=== PATIENT | female | born 1955 | race Caucasian/White ===

== ENCOUNTER 2022-02-28 08:04 | Day surgery (SDC) | payer OTHER ==
[2022-02-28 08:40] LABS: Absolute Lymphocytes (CBC) 2.3 K/uL (0.7-4.9); Hematocrit 40.9 % (36.0-45.0); Lymphocytes % 33.3 % (15.3-44.8); MCV 91.4 fL (80-100); MPV 6.8 fL (7.6-11.3); RBC Red Blood Cell Count 4.47 M/uL (3.86-4.86)
[2022-02-28 08:48] LABS: Specific Gravity 1.025 (1.005-1.030); Urine Bilirubin Negative (Negative); Urine Blood Negative (Negative); Urine Clarity Clear (Clear); Urine Color Yellow (Yellow); Urine Glucose Negative (Negative); Urine Protein Negative (Negative); Urine Urobilinogen 0.2 mg/dL (0.2-1.0); Urine pH 5.5 (5.0-7.0)
[2022-02-28] MEDS ORDERED: CEFAZOLIN SODIUM 1 GM/VIAL ONE (08:52)
[2022-02-28] MEDS ORDERED: ACETAMINOPHEN 500 MG TAB ONE (08:59)
[2022-02-28] MEDS: Ringers Lactate 1,000 ML IV ONE ×2 (09:00→09:15)
[2022-02-28 09:01] LABS: Urine Bacteria <20 /HPF (<20); Urine RBC None Seen /HPF (None Seen)
[2022-02-28] MEDS ORDERED: propofoL 200 MG/20 ML VIAL IV ONE ×2 (09:02)
[2022-02-28] MEDS ORDERED: LIDOCAINE 1% MPF 5 ML VIAL ONE ×2 (09:02→09:41)
[2022-02-28] MEDS ORDERED: FENTANYL CITR 100 MCG/2 ML ONE ×2 (09:02→09:53)
[2022-02-28 09:07] LABS: SARS-CoV-2 Antigen Rapid Res Negative (Negative)
--- NOTE | 2022-02-28 09:07 | RAD REPORT ---
EXAM DESCRIPTION: RAD - Chest Pa And Lat (2 Views) - 02/28/2022 9:01 am CLINICAL HISTORY: PREOP COMPARISON: No comparisons FINDINGS: Lines: None. Lungs: No evidence of edema or pneumonia. Pleural: No significant pleural effusions or pneumothorax. Cardiac: The heart size is within normal limits. Bones: No acute fractures. Other: IMPRESSION: No acute cardiopulmonary disease.
--- NOTE | 2022-02-28 09:08 | RAD REPORT ---
EXAM DESCRIPTION: - Finger-Thumb Left - 02/28/2022 9:00 am CLINICAL HISTORY: pre procedure screening COMPARISON: No comparisons FINDINGS: Degenerative changes are present at the base of the thumb. No fractures identified. Slight soft tissue prominence at the area of concern. Mild interphalangeal joint space narrowing. No radiop aque foreign body. IMPRESSION: No acute osseus abnormality involving the left hand.
[2022-02-28] MEDS ORDERED: CELECOXIB 100 MG CAPSULE ONE (09:20)
[2022-02-28] MEDS ORDERED: NS 0.9% VIAL 10 ML ONE (09:28)
[2022-02-28] MEDS ORDERED: dexAMETHasone 10 MG/ML VIAL ONE (09:38)
[2022-02-28] MEDS ORDERED: KETOROLAC 30 MG/ML INJ ONE (09:38)
[2022-02-28] MEDS ORDERED: ONDANSETRON 4 MG/2 ML VIAL ONE (09:39)
--- NOTE | 2022-02-28 09:42 | EKG ---
Test Date: 2022-02-28 Test Time: 08:58:21 [place] Mechanic: CHIKA MEASUREMENT RESULTS: Intervals: Rate: 73 [place]: 182 QRSD: 84 QT: 388 QTc: 427 [place]: P: -16 [place]: 182 QRS: -10 T: 12 INTERPRETIVE STATEMENTS: Normal sinus rhythm Anterolateral infarct, age undetermined Abnormal ECG No previous ECG available for comparison Electronically Signed On 02-28-22 09:41:46 CDT by Gonzalez Monae
[2022-02-28] MEDS: LABETALOL 20 MG/4ML SYRINGE IV ONE ×2 (10:45→10:55)
[2022-02-28] MEDS ORDERED: LABETALOL 20 MG/4ML SYRINGE IV ONE (11:24)
[2022-02-28] MEDS: HYDRALAZINE HCL 20 MG/ML VIAL ONE ×6 (11:35→12:05)
[2022-02-28 13:21] VITALS: BP 156/76; TEMP 97.6; O2SAT 98
--- NOTE | 2022-02-28 20:54 | HP ---
Date of Admission: 02/28/2022 History Of Present Illness: A 66-year-old white female, right-hand dominant, who has a cyst of left middle finger for probably 2 about years. Past Medical History: No medical problems. Past Surgical History: Hysterectomy, previous hand surgery, carpal tunnel release. Social History: Does not smoke, does not drink. Allergies: SHE IS ALLERGIC TO SULFA. Medications: Takes Celebrex. Physical Examination: She is 5 feet 6 inches, 190 pounds. Assessment: She has a mucous cyst of the left middle finger. Plan: Excision of mucous cyst. CLAUDIO/JAZMIN Voice ID: [id number]
--- NOTE | 2022-02-28 21:03 | OP ---
Surgeon: Britton Amador MD Preoperative Diagnosis: Mucous cyst of the left middle finger. Postoperative Diagnosis: Mucous cyst of the left middle finger. Procedure Performed: Excision of mucous cyst and bony exostosis, surgical dressing. Anesthesia: General. Description Of Procedure: After satisfactory induction of general anesthesia, left hand prepped with Betadine scrub, Betadine paint, dry sterile drapes applied to the arm. The arm was elevated, exsang uinated with an Esmarch, tourniquet inflated to 250 mmHg. Hand placed on a roll lock table. Mucous cyst was over the radial aspect of the DIP. Incision was made from the nail plate to the cyst and th en transverse over the DIP then proximally. Flaps were elevated and then the cyst was encountered, e xcised, and the bony exostosis was removed with a rongeur and . The wound was irrigated wi th saline solution. Tourniquet was released. Electrocautery was used for hemostasis. Wound closed with 4-0 Prolene vertical mattress, horizontal mattress, simple sutures. Dressed with Xeroform, 2 in [place]. The patient tolerated the procedure well and returned to recovery. GH/MODL Voice ID: [id number] Report ID: [id number]
== END 2022-02-28 13:17 | disposition home or self-care (01) ==
LOC: OR 08:04
PROVIDERS: ATTEND Specialist
PROC: 0HBGXZZ Excision of Left Hand Skin, External Approach (ICD-10-PCS; principal; 2022-02-28 09:00)
DX: D21.12 Benign neoplasm of connective and other soft tissue of left upper limb, including shoulder (principal)
CPT/HCPCS: 93005; 87088; 85025; 81001; 87086; 36415; 88304; 71046; 73140; 87811; 11420; J0360; J2704; J3010 ×2; J1100; J7120; J2405; J0690